=== PATIENT | male | born 1955 ===

== ENCOUNTER 2018-01-23 14:23 | Outpatient (CLI) | payer OTHER | END 2018-01-23 14:32 | disposition home or self-care (01) | LOC: EKG 14:23 | DX: Z01.818 Encounter for other preprocedural examination (principal) ==

== ENCOUNTER → 2018-01-23 | Outpatient (CLI) | payer OTHER | END | disposition home or self-care (01) | LOC: RAD 11:57 | DX: Z01.818 Encounter for other preprocedural examination (principal) ==

== ENCOUNTER 2018-02-23 12:59 | Outpatient (CLI) | payer OTHER ==
[2018-02-23] MEDS ORDERED: LISINOPRIL20 MG (19:55)
[2018-02-23] MEDS ORDERED: TAMS0.4C (19:56)
[2018-02-23] MEDS ORDERED: PROSCAR5 MG (19:56)
[2018-02-23] MEDS ORDERED: LEVAQUIN750 MG (19:56)
== END 2018-02-23 13:18 | disposition home or self-care (01) ==
LOC: LAB 12:59
DX: N30.00 Acute cystitis without hematuria (principal); R82.79 Other abnormal findings on microbiological examination of urine; R35.8 Other polyuria

== ENCOUNTER 2018-02-23 13:44 | Outpatient (CLI) | payer OTHER ==
[2018-02-23] MEDS ORDERED: LISINOPRIL20 MG (19:55)
[2018-02-23] MEDS ORDERED: PROSCAR5 MG (19:56)
[2018-02-23] MEDS ORDERED: TAMS0.4C (19:56)
[2018-02-23] MEDS ORDERED: LEVAQUIN750 MG (19:56)
== END 2018-02-23 17:00 | disposition home or self-care (01) ==
LOC: TOM 13:44
DX: R33.8 Other retention of urine (principal); R10.9 Unspecified abdominal pain

== ENCOUNTER 2018-02-23 19:28 | Emergency (ER) | payer OTHER ==
[~2018-02-23] VITALS: Ht 188 cm; Wt 99.8 kg
[2018-02-23] MEDS ORDERED: LISINOPRIL20 MG (19:55)
[2018-02-23] MEDS ORDERED: PROSCAR5 MG (19:56)
[2018-02-23] MEDS ORDERED: LEVAQUIN750 MG (19:56)
[2018-02-23] MEDS ORDERED: TAMS0.4C (19:56)
== END 2018-02-24 00:55 | disposition home or self-care (01) ==
LOC: ER 19:28
DX: N30.80 Other cystitis without hematuria (principal); R33.8 Other retention of urine

== ENCOUNTER 2018-02-26 11:36 | Outpatient (CLI) | payer OTHER ==
[~2018-02-26 11:36] MED LIST: LEVAQUIN750 MG; LISINOPRIL20 MG; PROSCAR5 MG; TAMS0.4C
== END 2018-02-26 16:44 | disposition home or self-care (01) ==
LOC: LAB 11:36
DX: N35.9 Urethral stricture, unspecified (principal)

== ENCOUNTER 2018-03-13 07:48 | Outpatient (CLI) | payer OTHER | END 2018-03-13 07:56 | disposition home or self-care (01) | LOC: LAB 07:48 | DX: I10 Essential (primary) hypertension (principal) ==

== ENCOUNTER 2018-03-18 10:15 | Inpatient (IN) | payer OTHER ==
[~2018-03-18] VITALS: Ht 188 cm; Wt 98.9 kg
== END 2018-03-19 11:26 | disposition home or self-care (01) | DRG 714 ==
LOC: CIR.AMB 10:15 → SURH 17:25 → CIR.AMB 17:45 → SURH 03-19 11:26
PROVIDERS: Urology
PROC: 0VT08ZZ Resection of Prostate, Via Natural or Artificial Opening Endoscopic (ICD-10-PCS; principal; 2018-03-18 12:00)
DX: N40.1 Benign prostatic hyperplasia with lower urinary tract symptoms (principal); R33.8 Other retention of urine; I11.9 Hypertensive heart disease without heart failure; D64.89 Other specified anemias; N31.8 Other neuromuscular dysfunction of bladder; N30.80 Other cystitis without hematuria

== ENCOUNTER → 2018-03-27 12:55 | Outpatient (CLI) | payer OTHER | END | disposition home or self-care (01) | LOC: LAB 12:55 | DX: N30.00 Acute cystitis without hematuria (principal) ==

== ENCOUNTER → 2018-04-15 13:42 | Outpatient (CLI) | payer OTHER | END | disposition home or self-care (01) | LOC: LAB 13:42 | DX: N30.00 Acute cystitis without hematuria (principal) ==

== ENCOUNTER → 2018-05-08 15:38 | Outpatient (CLI) | payer OTHER | END | disposition home or self-care (01) | LOC: LAB 15:38 | DX: N30.00 Acute cystitis without hematuria (principal) ==